=== PATIENT | male | born 1955 | race Caucasian/White ===

== ENCOUNTER → 2017-09-30 | Outpatient (CLI) | payer OTHER ==
[~2017-09-30] MED LIST: GADOBUTROL 10 ML VIAL IVP ONE
== END ==
LOC: FIMAGING 12:48
PROVIDERS: ATTEND Urology
DX: C61 Malignant neoplasm of prostate (principal)
CPT/HCPCS: A9585

== ENCOUNTER 2018-02-04 08:41 | Emergency (ER) | payer OTHER ==
[2018-02-04] MEDS ORDERED: DIAZEPAM 5 MG TAB PO ONE (09:00)
[2018-02-04] MEDS ORDERED: predniSONE 20 MG TAB PO ONE (09:00)
--- NOTE | 2018-02-04 09:00 | EDPHY ---
H & P Stated Complaint: back pain for past week after yard work Time Seen by Provider: 02/04/18 08:51 HPI/ROS: CHIEF COMPLAINT: Low back pain HISTORY OF PRESENT ILLNESS: The patient is a 62-year-old man with a history of previous back injuries that recovered with physical therapy alone. He states that 1 week ago he was doing yard work and while leaning over with a head tremor experienced low back pain and pain radiating down his left gluteus and leg into his foot. Also numbness. He went to his chiropractor who had helped him previously. The they took x-rays and told him it was probably his L5 nerve. He has been icing it and taking ibuprofen. He is feeling somewhat better on Tuesday but then on he leaned over in an awkward position and had a recrudescence of the pain and numbness. He now is also complaining of some weakness and feels that he is not walking very well. It is isolated to the left leg. No fevers. He denies IV drug use. No fevers or signs of infection. REVIEW OF SYSTEMS: Constitutional: denies: chills, fever, recent illness, recent injury EENTM: denies: blurred vision, double vision, nose congestion Respiratory: denies: cough, shortness of breath Cardiac: denies: chest pain, irregular heart rate, lightheadedness, palpitations Gastrointestinal/Abdominal: denies: abdominal pain, diarrhea, nausea, vomiting, blood streaked stools Genitourinary: denies: dysuria, frequency, hematuria, pain Musculoskeletal: See HPI Skin: denies: lesions, rash, jaundice, bruising Neurological: denies: headache, numbness, paresthesia, tingling, dizziness, weakness Hematologic/Lymphatic: denies: blood clots, easy bleeding, easy bruising Immunologic/allergic: denies: HIV/AIDS, transplant EXAM: GENERAL: Well-appearing, well-nourished and in no acute distress. HEAD: Atraumatic, normocephalic. EYES: Pupils equal round and reactive to light, extraocular movements intact, sclera anicteric, conjunctiva are normal. ENT: TMs normal, nares patent, oropharynx clear without exudates. Moist mucous membranes. NECK: Normal range of motion, supple without lymphadenopathy or JVD. LUNGS: Breath sounds clear to auscultation bilaterally and equal. No wheezes rales or rhonchi. HEART: Regular rate and rhythm without murmurs, rubs or gallops. ABDOMEN: Soft, nontender, normoactive bowel sounds. No guarding, no rebound. No masses appreciated. BACK: Mild low back pain that radiates to the left EXTREMITIES: Normal range of motion, no pitting or edema. No clubbing or cyanosis. Pain and paresthesias in L5 distribution NEUROLOGICAL: Cranial nerves II through XII grossly intact. Normal speech, normal gait for me. 5/5 strength, normal movement in all extremities, normal sensation PSYCH: Normal mood, normal affect. SKIN: Warm, dry, normal turgor, no visible rashes or lesions. Source: Patient, Family Exam Limitations: No limitations - Medical/Surgical History Hx Asthma: No Hx Chronic Respiratory Disease: No Hx Diabetes: No Hx Cardiac Disease: No Hx Renal Disease: No Hx Cirrhosis: No Hx Alcoholism: No Hx HIV/AIDS: No Hx Splenectomy or Spleen Trauma: No Other PMH: hyperlipidemia, prostate CA - Social History Smoking Status: Never smoked Alcohol Use: None Constitutional: Initial Vital Signs Temperature (C) 36.7 C 02/04/18 08:43 Heart Rate 96 02/04/18 08:43 Respiratory Rate 18 02/04/18 08:43 Blood Pressure 169/126 H 02/04/18 08:43 O2 Sat (%) 95 02/04/18 08:43 O2 Delivery Mode Room Air Allergies/Adverse Reactions: No Known Allergies Allergy (Unverified 02/04/18 08:42) Home Medications: Medication Instructions Recorded Crestor 02/04/18 Diazepam [Valium 5 MG (*)] 5 mg PO TID PRN #20 tab 02/04/18 predniSONE 60 mg PO DAILY #15 tab 02/04/18 Medical Decision Making - Diagnostics Imaging Results: Imaging Impressions Lumbar Spine MRI 02/04/18 08:59 Impression: The dominant finding is a 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 Other left- sided degenerative changes are described above. Results called and discussed with YANELY BOBO, at 02/04/2018 10:05 Imaging: Discussed imaging studies w/ manager call Radiologist ED Course/Re-evaluation: 10:10 a.m. we discussed the MRI results. The patient is feeling much better after prednisone and Valium. I offered to call Neurosurgery for referral but he states that he will use the skin specialist his brother uses at [facility]. He is requesting a prescription for the Valium. We also discussed using ibuprofen and ice as well. He understands and agrees with this plan. He is ambulating without difficulty. We discussed indications for returning. Differential Diagnosis: Partial list of the Differential diagnosis considered include but were not limited to; sciatica, fracture and although unlikely based on the history and physical exam, I also considered infection, cauda equina. I discussed these differential diagnoses and the plan with the patient as well as the usual and expected course. The patient understands that the diagnosis is provisional and that in medicine we are not always correct and that further workup is often warranted. Usual and customary warnings were given. All of the patient's questions were answered. The patient was instructed to return to the emergency department should the symptoms at all worsen or return, otherwise to followup with the physician as we discussed. - Data Points Medications Given: Discontinued Medications Diazepam (Valium) 5 mg PO EDNOW ONE Stop: 02/04/18 09:01 Last Admin: 02/04/18 09:07 Dose: 5 mg Prednisone (Prednisone) 60 mg PO EDNOW ONE Stop: 02/04/18 09:01 Last Admin: 02/04/18 09:08 Dose: 60 mg Departure - Departure Disposition: Home, Routine, Self-Care Clinical Impression: Sciatica of left side Condition: Fair Instructions: Diazepam (By mouth), Prednisone (By mouth), Sciatica (ED) Referrals: Oral Shirley MD [Primary Care Provider] - As per Instructions Aung Franco MD [Medical Doctor] - As per Instructions Prescriptions: Diazepam [Valium 5 MG (*)] 5 mg PO TID PRN #20 tab PRN Reason: Spasms predniSONE 60 mg PO DAILY #15 tab
[2018-02-04 10:33] VITALS: BP 135/78
== END 2018-02-04 10:33 | disposition home or self-care (01) ==
DX: M54.32 Sciatica, left side (principal); Z85.46 Personal history of malignant neoplasm of prostate
CPT/HCPCS: J7512